=== PATIENT | male | born 1950 | race Caucasian/White ===

== ENCOUNTER 2023-02-17 17:18 | Emergency (ER) | payer SELFPAY ==
[2023-02-17 17:19] VITALS: BP 180/86; PULSE 100; RESP 18; TEMP 36.7; O2SAT 96
== END 2023-02-17 18:34 | disposition left against medical advice (07) ==
DX: Z53.21 Procedure and treatment not carried out due to patient leaving prior to being seen by health care provider (principal)

== ENCOUNTER 2023-11-16 07:00 | Day surgery (SDC) | payer SELFPAY ==
--- NOTE | 2023-11-16 06:58 | ANES.PREOP_ITS ---
General Info Date of Service Date Performed: 11/16/23 Height: 5 ft 9 in Weight: 70.307 kg Body Mass Index (BMI): 22.8 Surgical Procedure: Operation Date: 11/16/23 09:10 Proposed Procedure Side Surgeon p Cataract Extraction with IOL Implant Right Marco Antonio Eugene MD Meds Allergies and Home Medications Allergies Allergy/AdvReac Type Severity Reaction Status Date / Time No Known Allergies Allergy Verified 11/16/23 07:46 Home Medication Medication Instructions Recorded Unknown [No Known Home Meds] 09/04/23 Current Visit Medications: Current Medications Generic Name Dose Route Start Last Admin Trade Name Freq PRN Reason Stop Dose Admin Acetaminophen 1,000 mg 11/16/23 06:00 Acetaminophen 500 Mg Tab PO 12/16/23 05:59 Q4H PRN PRN Balanced Salt Solution 500 ml 11/16/23 06:00 Balanced Salt Soln.-Plus 500 Ml Bag OP 12/16/23 05:59 DIRECTED HILL Miscellaneous Medication 0 ml 11/16/23 06:00 Prednisolone 1%, Moxifloxacin 0.5%, Bromfenac 0.09% 5ml Btl OD 12/16/23 05:59 DIRECTED HILL Miscellaneous Medication 0 ml 11/16/23 06:00 Tropicam./Phenyleph. (1/2.5%) 10 Ml Btl OD 12/16/23 05:59 DIRECTED HILL Tetracaine HCl 0 ml 11/16/23 06:00 Tetracaine 0.5% 4 Ml Btl OD 12/16/23 05:59 DIRECTED HILL PFSH Active Problems Active Problems: Problem Status Onset Code Nuclear age-related cataract, left eye H25.12 Nuclear age-related cataract, right eye H25.11 Medical History Medical History Hernia Cataract Surgical History Surgical History History of left inguinal hernia repair Tobacco Smoking/Tobacco Use Status: Former Tobacco Use Alcohol Alcohol Intake: former Substance Use Substance use: Never Substance use type: does not use Vital Signs and Lab Results Lab Results Blood Type / Crossmatch: No Data to Display Complete Blood Count: No Data to Display Complete Metabolic Panel: No Data to Display Liver Function Panel: No Data to Display Coagulation Panel: No Data to Display Cardiac Panel: No Data to Display Arterial Blood Gas: No Data to Display Venous Blood Gas: No Data to Display Pancreas Panel: No Data to Display Thyroid Panel: No Data to Display Infectious Disease: No Data to Display Blood Cultures: No Data to Display Toxicology Panel: No Data to Display Anesthesia Assessment and Plan Anesthesia History Personal History: No History of Anesthesia Complications Family History: No Family History of Anesthesia Complications Exercise Tolerance Exercise Tolerance: Metabolic Equivalents>4 Pertinent Negatives Pertinent Negatives: No Symptoms of GERD, No Major Cardiovascular Symptoms or Complaints, No Major Pulmonary Symptoms or Complaints and No History of CVA/TIA Cardiac & Pulmonary Exam Cardiac Exam: Normal S1/S2 Heart Sounds Pulmonary Exam: Clear Bilateral Breath Sounds Implantable Cardiac Device Does patient have a Pacemaker or an ICD?: No Airway Exam Known Difficult Airway: No Mallampati Class: 3 Mouth Opening: Normal (> 3cm) Thyromental Distance: Greater than 3 cm Neck Range of Motion: Full ROM Neck Circumference: Normal Teeth Condition: Normal Dentition ASA Classification ASA Score: ASA 2 Emergency Case?: No NPO Status NPO Status: NPO Clears >2 hours, Solids >8 hours Anesthesia Plan Resuscitation Status: Full Code Anesthesia Technique: MAC Anesthesia Airway Planned: Natural Airway Monitors Used: Standard Monitors Preoperative Comments:: Significant anxiety per Dr. Eugene. On assessment [place], I did make sure understood through being able to repeat back our conversation.
--- NOTE | 2023-11-16 07:04 | W.PREOPHP ---
Assessment and Plan Assessment and plan (1) Nuclear age-related cataract, right eye: Status: Chronic Assessment and plan: Assessment: Visually significant cataract of the right eye. Plan: Cataract extraction with lens implantation of the right eye. History of Present Illness History of Present Illness Chief Complaint: Progressive decreased vision both eyes Narrative: Patient is a 68-year-old male who presented in June with complaints of progressive decreased vision in both eyes at both distance and near over the past several years. On examination he was noted to have dense bilateral cataracts with corrected vision of 2300 OD, 20/100 OS. The option of cataract surgery was offered to the patient and he wished to proceed. [facility] All Active Problems Nuclear age-related cataract, left eye (Acute) Nuclear age-related cataract, right eye (Chronic) Medical History Hernia Cataract Surgical History History of left inguinal hernia repair Social History Smoking/Tobacco Use Status: Former Tobacco Use Quit Date: 05/21/99 Smoking risk assessment performed?: Yes Alcohol Intake: former Drug use: Never Substance use type: does not use Housing: other Do you feel safe at home: Yes Additional Social history: lives alone Meds Allergies and Home Medications Allergies Allergy/AdvReac Type Severity Reaction Status Date / Time No Known Allergies Allergy Verified 11/16/23 07:46 Home Medications Medication Instructions Recorded Confirmed Type Unknown [No Known Home Meds] 09/04/23 11/14/23 History Exam Eyes Other: Most recent ocular examination reveals corrected visual acuity of 20/300 OD, 20/100 OS. Extraocular motility is normal. Intraocular pressure is 12 OD 10 OS. Slit-lamp examination is significant for pupils dilating to 6 mm OU. Dense bilateral nuclear cataracts OU. Funduscopic examination shows disc cupping of 0.3 OD 0.25 OS with normal vessels, macula, peripheral retina and vitreous. There is some myelination of the optic nerve superiorly in the right eye. Resp Auscultation: clear to auscultation bilaterally Cardio Rate: regular rate Rhythm: regular rhythm Psych Appearance: grossly normal Mental Status: other Mood: other Affect: anxious affect Other: somewhat confused
[2023-11-16 07:48] VITALS: BP 182/103; PULSE 63; RESP 16; TEMP 36.3; O2SAT 95
[2023-11-16 08:17] VITALS: BMI 22.8
[2023-11-16 08:45] VITALS: BP 200/94
[2023-11-16 08:51] VITALS: BP 190/77
[2023-11-16] MEDS: Tetracaine 0.5% 4 ML BTL OD (09:04)
[2023-11-16] MEDS: Povidone-Iodine Ophth 30 ML BTL (09:05)
[2023-11-16] MEDS: Duovisc Viscoelastic System EACH 1 EACH (09:10)
[2023-11-16] MEDS: Balanced Salt Soln.-PLUS 500 ML BAG OP (09:10)
[2023-11-16] MEDS: Lidocaine 1% Pres-Free 5 ML VIAL (09:11)
[2023-11-16] MEDS: Trypan Blue 0.06% 0.5 ML SYR (09:22)
--- NOTE | 2023-11-16 09:37 | W.PM.DSUDISC ---
Date of service: 11/16/23 Time of Service: 09:37 Discharge Plan Disposition Patient Disposition: Home Discharge Details Attending Provider: Marco Antonio Eugene Primary Care Provider: None,None Home Meds and New Rx's Prescriptions: No Action No Known Home Meds Discharge Instructions Stand Alone Forms: [facility] Post-Op Cataract, Todd Ramirez ([facility]) Discharge Orders Discharge Orders: Discharge Order (Routine); Ordered 11/16/23 Ordered By: Marco Antonio Eugene DS: Diagnosis Discharge Diagnosis (1) Nuclear age-related cataract, left eye: Status: Resolved
--- NOTE | 2023-11-16 09:37 | W.PM.OP ---
Date of service: 11/16/23 Time of Service: 09:37 Operative Note Operative Note DATE OF PROCEDURE: 11/16/23 PRE-OP DIAGNOSIS: Nuclear cataract, left eye POST-OP DIAGNOSIS: same PROCEDURE: Cataract extraction using phacoemulsification with intraocular lens implant, left eye SURGEON: Marco Antonio Eugene ANESTHESIA TYPE: Local By Surgeon and MAC Refer to Anesthesia Record PATHOLOGY: none sent COMPLICATIONS: None Patient was transported to: same day Patient's condition: stable Implants: Ad Clareon [id number] Indications: Progressive decreased vision due to cataract, left eye Procedure Description: CATARACT SURGERY OPERATIVE REPORT PREOPERATIVE DIAGNOSIS: Nuclear cataract, left eye POSTOPERATIVE DIAGNOSIS: Same OPERATION: Cataract extraction using phacoemulsification with posterior chamber intraocular lens implant, left eye. IOL: IOL Reverse Unit Operator Fisherman/Model: Ad Clareon [id number] IOL Power: + 27.0 diopters IOL Serial Number: [id number] Optic Diameter: 6.0mm Haptic/Overall Diameter: 13.0mm PHACO INFO: Ad Aeponaurion Vision System with OZil and Active Fluidics Cumulative Dispersed Energy (CDE): 7.87 seconds SURGEON: Marco Antonio Eugene MD, SHEA ANESTHESIA: Monitored Anesthesia Care (MAC), with local sub-tenon's anesthetic infiltration COMPLICATIONS: None SPECIMENS: None INDICATIONS FOR PROCEDURE: The patient is a 73-year-old male with history of diminished visual acuity in both eyes secondary to the development of significant bilateral nuclear cataracts. He is significantly symptomatic that he desires cataract surgery and attempt to improve and maximize his vision. The option of cataract surgery was offered to the patient and he wished to proceed. See office notes for detailed information. PROCEDURE: The correct surgical eye was identified and marked as the left eye and the pupil was dilated in the preoperative area using mydriatics and cycloplegics. The dilated pupil size was 7.0 mm. The patient elected to proceed without oral sedation. The patient was brought to the operating room where cardiopulmonary monitoring was instituted and surgical time-out was performed, confirming the correct operative eye and IOL power. Topical anesthesia was administered and ophthalmic povidone-iodine 5% was instilled into the conjunctival fornices. The randi-ocular area was prepped with Betadine 10% solution and draped in the usual sterile fashion for intraocular surgery, including an aperture drape. A Tegaderm transparent film dressing was cut in half and used to cover the lashes and lid margins. Severe blepharospasm was noted. Care was taken to sequester the lashes and lid margins under the Tegaderm dressing. A lid speculum was placed between the lids of the operative eye and the Ad LuxOR Revalia operating microscope was maneuvered into position. The patient had such severe blepharospasm we had to read draped with a second Tegaderm to isolate the lashes. Radha scissors were then used to make a conjunctival buttonhole approximately 6mm posterior to the limbus in the inferonasal quadrant. Blunt dissection was carried out to expose bare sclera, and a blunt-tipped sub-tenon?s anesthesia cannula was introduced and passed posteriorly along the globe where non-preserved plain lidocaine was injected into posterior sub-Tenon?s space. A sideport knife was used to make a paracentesis port. VisionBlue was injected into the anterior chamber and allowed to sit for 20 seconds. Intraocular phenylephrine/lidocaine was injected into the anterior chamber. The anterior chamber was then filled with viscoelastic. A keratome knife was used construct a two-plane clear corneal tunnel extending 2.0mm into clear cornea. A flap was raised on the anterior capsule and capsulorhexis forceps were used to complete a continuous curvilinear capsulorhexis of 5.0 mm. Balanced salt solution was then used to perform cortical cleaving hydrodissection and nuclear hydrodelineation until the lens could be freely rotated within the capsular bag. The lens nucleus was then disassembled and removed within the capsular bag and iris plane using phacoemulsification. Residual cortical material was removed using the irrigation/aspiration handpiece. The posterior capsule was carefully polished to remove as much residual lens epithelial cells as safely possible. The capsular bag was then inflated and the anterior chamber deepened with viscoelastic. The lens implant described above was inserted into the capsular bag using the Ad Autonome Injector. A Kuglen hook was used to dial the IOL into position. Residual viscoelastic was then removed first from posterior to the IOL, then from the anterior chamber using the I/A handpiece. The lens implant was noted to center nicely within the capsular bag. The incisions were stromally hydrated, and the anterior chamber was reformed using BSS. Then 0.5cc of moxifloxacin 1.0mg/ml were injected into the capsular bag and anterior chamber. The incisions were checked with a Weck spear and found to be secure. Several drops of ophthalmic povidone-iodine 5% were then applied to the eye followed by two drops of combination steroid/NSAID/antibiotic solution. The drapes were removed and a clear plastic protective eye shield was placed over the eye. The patient was then returned to Same Day Surgery in stable condition.
[2023-11-16 09:42] VITALS: BP 186/100; PULSE 66; RESP 16; TEMP 36.4; O2SAT 98
--- NOTE | 2023-11-16 10:13 | W.ANESPOSTOP ---
Postoperative Evaluation Date, Time and Location Date Performed: 11/16/23 Time Performed: 09:42 Patient Location: Day Surgery Unit Vital Signs Most Recent Imported Vital Signs: Most Recent Vital Signs Temp Pulse Resp BP Pulse Ox 36.4 C L 66 16 186/100 H 98 11/16/23 09:42 11/16/23 09:42 11/16/23 09:42 11/16/23 09:42 11/16/23 09:42 Pain Score Most Recent Pain Score: Most Recent Pain Score Pain Level 0 11/16/23 09:42 Assessment Mental Status: Awake (Alert & Oriented to Patient Baseline) Airway and Respiratory Function: Patent airway with normal (patient baseline) respiratory exam Cardiovascular Function: Hemodynamically Stable Hydration Status: Adequately Hydrated Nausea & Vomiting: No Nausea or Vomiting Pain: Pt. Denies Any Pain Peripheral Nerve Block: Other (Local by Dr. Eugene)
== END 2023-11-16 10:06 | disposition home or self-care (01) ==
PROVIDERS: Visit Provider Ophthalmology
PROC: (CPT 66984; principal; 2023-11-16 09:00)
DX: H25.12 Age-related nuclear cataract, left eye
CPT/HCPCS: 66984; 00123; V2632; J2003